=== PATIENT | female | born 1990 | race African-American/Black ===

== ENCOUNTER 2017-07-01 08:12 | Emergency (ER) | payer SELFPAY ==
[2017-07-01] MEDS ORDERED: Diazepam 5 MG TAB ONE (09:00)
[2017-07-01] MEDS ORDERED: HYDROcodone/Acetaminophen 10/325 mg Tablet ONE (09:00)
[2017-07-01] MEDS ORDERED: Naproxen 500 MG TAB ONE (09:00)
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
== END 2017-07-01 10:25 | disposition home or self-care (01) ==
LOC: MADERS 08:12
DX: S30.0XXA Contusion of lower back and pelvis, initial encounter (principal); M54.2 Cervicalgia; V89.2XXA Person injured in unspecified motor-vehicle accident, traffic, initial encounter
CPT/HCPCS: 72040; 72100